=== PATIENT | female | born 1975 | race Caucasian/White ===

== ENCOUNTER 2016-06-30 07:41 | Day surgery (SDC) | payer OTHER, BC ==
[2016-06-29 11:54] VITALS: BMI 21.6
[2016-06-30] MEDS ORDERED: PROPOFOL 20 ML ONE ×2 (09:31)
[2016-06-30] MEDS ORDERED: MIDAZOLAM HCL 2 MG/2 ML SINGLE DOSE VIAL ONE (09:32)
[2016-06-30] MEDS ORDERED: ceFAZolin SODIUM 1 GM VIAL ONE (09:56)
--- NOTE | 2016-06-30 10:38 | OP ---
Operative Note - Note: Operative Date: 06/30/16 Pre-Operative Diagnosis: right knee LMT Surgeon: Lucio Nicole Anesthesiologist/COUNTRY PRINTER: Sampson Majano Anesthesia: Local Operative Report Dictated: Yes
--- NOTE | 2016-06-30 10:39 | DS ---
Physical Examination Vital Signs: Vital Signs Temperature 98.2 F 06/30/16 08:10 Pulse Rate 67 06/30/16 08:10 Respiratory Rate 18 06/30/16 08:10 Blood Pressure 122/77 06/30/16 08:10 O2 Sat by Pulse Oximetry (%) 98 06/30/16 08:18 Discharge Summary Reason For Visit: LATERAL MENISCAL TEAR, RIGHT KNEE - Home Medications Comprehensive Discharge Medication List: Ambulatory Orders NK [No Known Home Medication] 06/29/16
[2016-06-30] MEDS ORDERED: oxyCODONE HCL 5 MG TABLET ONE ×2 (11:14→11:57)
[2016-06-30] MEDS ORDERED: LACTATED RINGERS SOLUTION 1,000 ML IV SCH (12:45)
[2016-06-30] MEDS ORDERED: oxyCODONE HCL 5 MG TABLET PO PRN ×2 (14:13)
[2016-06-30] MEDS ORDERED: ONDANSETRON 4 MG/2 ML VIAL IVPUSH PRN (14:13)
[2016-06-30 17:07] VITALS: TEMP 97.7
[2016-06-30 17:42] VITALS: BP 106/56; PULSE 57
--- NOTE | 2016-07-03 12:42 | PATH ---
Surgical Pathology Report Patient Name: MEGHANN KAMARA Med. Rec. #: [id number] /Age/Gender: 1975 (Age: 41) / F Account: [id number] Location: [facility] AMBULATORY Taken: 06/30/2016 Received: 06/30/2016 Reported: 07/03/2016 Physicians: Lucio Nicole M.D. Specimen(s) Received SHAVINGS RIGHT KNEE Clinical History Right knee bucket handle tear Final Diagnosis KNEE, RIGHT, ARTHROSCOPIC SHAVING: FIBROCARTILAGE WITH MYXOID DEGENERATIVE CHANGES. Electronically Signed Red Leroy M.D. Gross Description Received in formalin labeled shavings right knee are multiple pieces of palma white tissue measuring 0.6 x 0.6 x 0.3 cm. in aggregate. [employer] Arc sections are submitted in one cassette. (AF) [email or web address]/07/02/2016
== END 2016-06-30 13:05 | disposition home or self-care (01) ==
LOC: FASU 07:41
PROVIDERS: ATTEND Orthopaedic Surgery
PROC: 0SBC4ZZ Excision of Right Knee Joint, Percutaneous Endoscopic Approach (ICD-10-PCS; principal; 2016-06-30 10:03)
DX: S83.251A Bucket-handle tear of lateral meniscus, current injury, right knee, initial encounter (principal); X58.XXXA Exposure to other specified factors, initial encounter; Y93.9 Activity, unspecified; Y92.9 Unspecified place or not applicable
CPT/HCPCS: 84703; 88304-TC

== ENCOUNTER 2019-05-20 20:13 | Emergency (ER) | payer OTHER, BC ==
[2019-05-20] MEDS ORDERED: SODIUM CHLORIDE 1,000 ML IV STA (20:32)
[2019-05-20 20:33] VITALS: BP 147/92; PULSE 67; TEMP 98.6; BMI 21.4
[2019-05-20] MEDS ORDERED: PANTOPRAZOLE SODIUM 40 MG VIAL IVPB ONE (20:50)
[2019-05-20 20:54] LABS: HEMATOCRIT 38.3 % (32.4-45.2); HEMOGLOBIN 12.3 GM/dl (10.7-15.3); MCHC 32.2 g/dl (32.0-36.0); MEAN CELL VOLUME 89.9 fl (80-96); MEAN PLT VOLUME 9.3 fl (7.5-11.1); PLATELET COUNT 163 K/MM3 (134-434); RBC 4.26 M/mm3 (3.60-5.2); RDW 14.4 % (11.6-15.6); WHITE BLOOD COUNT 6.1 K/mm3 (4.0-10.8)
[2019-05-20] MEDS ORDERED: PANTOPRAZOLE SODIUM 40 MG VIAL ONE (20:57)
[2019-05-20 21:05] LABS: EPITHELIAL CELLS FEW /hpf
[2019-05-20 21:09] LABS: ALBUMIN 4.4 g/dl (3.4-5.0); BILIRUBIN,TOTAL 1.6 mg/dl (0.2-1); CREATININE 0.7 mg/dl (0.55-1.3); TOT PROT 7.4 g/dl (6.4-8.2)
[2019-05-20 21:25] LABS: PLATELET ESTIMATE ADEQUATE
[2019-05-20] MEDS ORDERED: FAMOTIDINE 20 MG/50 ML IVPB 20 MG/50 ML MG IVPB ONE ×2 (22:13→22:18)
--- NOTE | 2019-05-21 01:06 | PDOC ---
Documentation entered by Tish Yung SCRIBE, acting as scribe for Scarlett Oates MD. Scarlett Oates MD: This documentation has been prepared by the jessicaibeDilshad Lincy, SCRIBE, under my direction and personally reviewed by me in its entirety. I confirm that the documentation accurately reflects all work, treatment, procedures, and medical decision making performed by me. History of Present Illness - General Chief Complaint: Pain, Acute Stated Complaint: LUQ PAIN Time Seen by Provider: 05/20/19 20:31 History Source: Patient Exam Limitations: No Limitations - History of Present Illness Initial Comments: 05/20/19 21:18 The patient is a 44-year-old female with a past medical history significant for MS, who presents to the emergency department with left-sided abdominal pain. The patient reports she had a sudden onset of left-sided abdominal pain on 03/14 , took some Zantac and omeprazole, with relief. The patient reports since then, shes been having intermittent episodes of left-sided abdominal pain associated with eating food. The patient reports she would feel hungry at first then the pain presents. The patient reports intermittent compliance with OTC omeprazole for the symptoms. The patient states over the weekend the pain became more frequent and steady, which increased in severity today. The patient reports she was at work when the pain presented, she went to the store and bought some Pepcid. The patient reported when she reached home, the pain was unbearable and decided to be evaluated at the ER. Denies nausea, vomiting, diarrhea, constipation, urinary symptoms, or ingesting unusual foods. Allergies: NKA Family history: Mother: Pancreatic CA ( at age 54). PCP: Dr. England at [facility], Appointment tomorrow. Past History - Past Medical History Allergies/Adverse Reactions: Allergies Allergy/AdvReac Type Severity Reaction Status Date / Time No Known Allergies Allergy Verified 05/20/19 20:25 Home Medications: Ambulatory Orders Dimethyl Fumarate [Tecfidera] 240 mg PO DAILY 05/20/19 Omeprazole 20 mg PO PRN 05/20/19 Pantoprazole Sodium [Protonix] 40 mg PO DAILY #20 tablet. 05/20/19 Anemia: No Asthma: No Cancer: No Cardiac Disorders: No CVA: No COPD: No CHF: No Dementia: No Diabetes: No GI Disorders: No Disorders: No HTN: No Hypercholesterolemia: No Liver Disease: No Seizures: No Thyroid Disease: No Other medical history: MS - Surgical History Abdominal Surgery: No Appendectomy: No Cardiac Surgery: No Cholecystectomy: No Lung Surgery: No Neurologic Surgery: No Orthopedic Surgery: Yes (Bilateral Knee Arthroscopy) - Psycho Social/Smoking Cessation Hx Smoking History: Never smoked Have you smoked in the past 12 months: No Information on smoking cessation initiated: No Hx Alcohol Use: Yes (CASUAL) Drug/Substance Use Hx: No Substance Use Type: None Hx Substance Use Treatment: No Review of Systems - Review of Systems Able to Perform ROS?: Yes Comments:: 05/20/19 21:19 CONSTITUTIONAL: Pt denies Fever, Chills, weakness. HEENT: denies vision changes, sore throat RESPIRATORY: Denies cough, sob, hemoptysis CARDIAC: denies chest pain, palpitations, lightheadedness, leg swelling ABD/GI: +left sided abdominal pain. denies nausea, vomiting, blood per rectum, melena, diarrhea : denies dysuria, frequency, discharge MSK: denies back pain, joint swelling SKIN: denies bruising, erythema, rash NEUROLOGICAL: denies headache, numbness, focal weakness, tingling, ataxia, weakness HEMATOLOGICAL: denies anemia, easy bruising, easy bleeding *Physical Exam - Vital Signs Last Vital Signs Temp Pulse Resp BP Pulse Ox 98.6 F 67 16 147/92 100 05/20/19 20:30 05/20/19 20:30 05/20/19 20:30 05/20/19 20:30 05/20/19 20:30 - Physical Exam 05/20/19 21:19 GENERAL: The patient is awake, alert, and fully oriented, in no acute distress. HEAD: Normal with no signs of trauma. EYES: Pupils equal, round and reactive to light, extraocular movements intact, sclera anicteric, conjunctiva clear with no pallor. ENT: Ears normal, nares patent, oropharynx clear without exudates. +dry mucous membranes. NECK: Normal range of motion, supple without lymphadenopathy, JVD, or masses. LUNGS: Breath sounds equal, clear to auscultation bilaterally. No wheeze/ crackles. HEART: Regular rate and rhythm, normal S1 and S2 without murmur or rub. ABDOMEN: +mild left upper quadrant tenderness just left of midline, no masses, rebound or involuntary guarding. Normal BS. EXTREMITIES: Normal range of motion, no edema. No clubbing or cyanosis. No cords, erythema, or tenderness. NEUROLOGICAL: Cranial nerves II through XII grossly intact. Normal speech, normal gait. PSYCH: Normal mood, normal affect. SKIN: Warm, Dry, normal turgor, no rashes or lesions noted. ED Treatment Course - LABORATORY CBC & Chemistry Diagram: 05/20/19 20:40 05/20/19 20:40 - ADDITIONAL ORDERS Additional order review: Laboratory Results 05/20/19 05/20/19 05/20/19 20:40 20:40 20:40 Sodium Potassium Chloride Carbon Dioxide Anion Gap BUN Creatinine Est GFR (CKD-EPI)AfAm Est GFR (CKD-EPI)NonAf Random Glucose Calcium Total Bilirubin AST ALT Alkaline Phosphatase Total Protein Albumin Lipase 303 Urine Color Yellow Urine Appearance Clear Urine pH 6.5 Urine Protein Negative Urine Glucose (UA) Negative Urine Ketones Negative Urine Blood Negative Urine Nitrite Negative Urine Bilirubin 1+ H Urine Urobilinogen 1.0 Ur Leukocyte Esterase Trace H Urine RBC 0-2 Urine WBC 2-5 Ur Transition Epith Cell Few Urine HCG, Qual Negative 05/20/19 20:40 Sodium 137 Potassium 4.0 Chloride 107 Carbon Dioxide 26 Anion Gap 4 L BUN 13.0 Creatinine 0.7 Est GFR (CKD-EPI)AfAm 121.27 Est GFR (CKD-EPI)NonAf 104.64 Random Glucose 106 Calcium 9.0 Total Bilirubin 1.6 H AST 368 H ALT 251 H Alkaline Phosphatase 116 Total Protein 7.4 Albumin 4.4 Lipase Urine Color Urine Appearance Urine pH Urine Protein Urine Glucose (UA) Urine Ketones Urine Blood Urine Nitrite Urine Bilirubin Urine Urobilinogen Ur Leukocyte Esterase Urine RBC Urine WBC Ur Transition Epith Cell Urine HCG, Qual 05/20/19 20:40 RBC 4.26 MCV 89.9 MCHC 32.2 RDW 14.4 MPV 9.3 Neutrophils % No Result Required. Lymphocytes % No Result Required. - Medications Given in the ED: ED Medications Discontinued Medications Generic Name Dose Route Start Last Admin Trade Name Freq PRN Reason Stop Dose Admin Sodium Chloride 1,000 mls @ 1,000 mls/hr 05/20/19 20:32 05/20/19 20:45 Normal Saline - IV 02/04/20 21:31 1,000 mls/hr ASDIR STA Administration Famotidine/Sodium Chloride 20 mg in 50 mls @ 100 mls/hr 05/20/19 22:13 22:20 Pepcid 20 Mg Premixed Ivpb - IVPB 05/20/19 22:42 100 mls/hr ONCE ONE Administration Pantoprazole Sodium 40 mg 05/20/19 20:50 05/20/19 21:10 Protonix Iv IVPB 05/20/19 20:51 40 mg ONCE ONE Administration Medical Decision Making - Medical Decision Making As noted above, this 44-year-old woman with a history of MS presents with several week history of progressive epigastric to left upper quadrant abdominal discomfort. Pain originally related to meals but has become continuous in the last few days. No associated fever/chills or change in bowel movements. Patient had been empirically taking Prilosec for the last 2 days. She has an appointment with her general medical doctor tomorrow but discomfort was severe enough tonight that she thought that evaluation the ER was important. Exam as noted with mild tenderness of the upper abdomen just to the left of the epigastrium. No peritoneal irritation signs/masses palpable. CBC, chemistry profile, lipase sent IV access obtained and 1 L normal saline hydration started. Patient also received Protonix 40 mg IV Pepcid 20 mg IV also given. CBC is normal with near lymphocytopenia (total lymphocyte count approximately 600). Patient's MS medication methyl fumarate has caused her to have lymphocyte counts of 400 in the past. Chemistry profile notable only for transaminitis (UXQ446/ALT 251) and minimally elevated bilirubin (1.6). Alkaline phosphatase is normal. Methyl fumarate has also been known to cause transaminase elevation as well as bilirubin elevation. Lipase is normal at 303 Patient feels somewhat better after Protonix and Pepcid IV. Laboratory values discussed with the patient. Other reasons for mild to moderate transaminitis such as nonalcoholic fatty liver disease discussed with the patient. At this point, since she felt better, the patient preferred to follow-up with her doctor tomorrow and obtain imaging as an outpatient as needed Discharge - Discharge Information Problems reviewed: Yes Clinical Impression/Diagnosis: Epigastric abdominal pain Condition: Stable Disposition: HOME - Additional Discharge Information Prescriptions: Pantoprazole Sodium [Protonix] 40 mg PO DAILY #20 tablet. - Follow up/Referral Referrals: Nadege England MD [Primary Care Provider] - - Patient Discharge Instructions Patient Printed Discharge Instructions: DI for Epigastric Pain Additional Instructions: Protonix 40 mg daily Avoid acidic foods, coffee, alcohol, chocolate Follow-up with your doctor tomorrow as scheduled Follow-up with Dr. Reyes as scheduled Return to ER if you have severe pain, fever or vomiting - Post Discharge Activity
== END 2019-05-20 22:59 | disposition home or self-care (01) ==
LOC: FER 20:13 → SUPCPDRO 20:13 → FER 22:59
PROC: 3E033GC Introduction of Other Therapeutic Substance into Peripheral Vein, Percutaneous Approach (ICD-10-PCS; principal; 2019-05-20)
PROC: 3E0337Z Introduction of Electrolytic and Water Balance Substance into Peripheral Vein, Percutaneous Approach (ICD-10-PCS; 2019-05-20)
DX: R10.13 Epigastric pain (principal); G35 Multiple sclerosis
CPT/HCPCS: 36415; 80053; 81003; 81015; 83690; 84703; 85025; 99282-25; J7030